=== PATIENT | female | born 1980 | race Caucasian/White ===

== ENCOUNTER 2017-01-05 10:02 | Outpatient (CLI) | payer OTHER ==
--- NOTE | 2017-01-05 12:50 | L&D Discharge Summary ---
OB Discharge Summary Datetime Report Generated by CPN: 01/05/2017 12:50 DISCHARGE DIAGNOSIS Diagnosis/Symptoms: Reassuring Surveillance - Annotate Details Diagnoses/Symptoms Other: IUP at 36.3, reactive NST Number of Babies in Womb: 1 Parity: 4 DIET/ACTIVITY/RESTRICTIONS Diet: Regular Activity: Normal Activity TEACHING/INSTRUCTIONS/REFERRALS Instructions Given To: patient Instructions Understood: Patient Verbalized Understanding Referrals: None Educational Materials- Other: kick counts care notes reviewed with patient, patient verbalized understanding DISCHARGE INFORMATION Discharged AMA: No Discharge Date/Time: 01/05/2017 10:48 Discharged To: Home Discharge Provider Name: Ponce Accompanied By: self Discharge Method: Ambulatory Condition: Stable FOLLOW UP INFORMATION Follow Up With: [facility] Follow Up On: As Scheduled Follow Up Phone Number: [facility] - GENERAL INSTR-CALL PROVIDER IF: Contractions: Contractions or cramps become more frequent than 8 in one hour or 4 in 20 minutes; Regular painful contractions every 5 minutes or less for one hour. Time your contractions from the beginning of one to the beginning of the next Pressure: Pressure in your vagina or lower abdomen that may feel like the baby is pushing down Period Like Cramps: Period-like cramps or low dull backache that may come and go Cramps/Diarrhea: Abdominal cramps that may be accompanied by diarrhea Gush of Fluid/Blood: Gush of fluid or blood from your vagina (it is normal to have spotting after vaginal exam or intercourse) Vaginal Discharge: Change in the type or amount of vaginal discharge Decreased Movement: Your baby is not moving as much as usual- 4 movements in 1 hour after drinking and resting on side Temperature: Temperature greater than 100.0(F) orally
--- NOTE | 2017-01-05 16:45 | Antepartum Discharge Summary ---
Antepartum DC Datetime Report Generated by CPN: 01/05/2017 16:45 DIET/ACTIVITY/RESTRICTIONS Diet: Regular (01/05/2017 10:51:Taryn Joy RN) Activity: Normal Activity (01/05/2017 10:51:Taryn Joy RN) TEACHING/INSTRUCTIONS/REFERRALS Instructions Given To: patient (01/05/2017 10:51:Taryn Joy RN) Instructions Understood: Patient Verbalized Understanding (01/05/2017 10:51:Taryn Rufino, RN) Referrals: None (01/05/2017 10:51:Taryn Joy RN) Educational Materials- Other: kick counts care notes reviewed with patient, patient verbalized understanding (01/05/2017 10:51:Taryn Joy RN) DISCHARGE INFORMATION Discharged AMA: No (01/05/2017 10:51:Taryn Joy RN) Discharge Date/Time: 01/05/2017 10:48 (01/05/2017 10:51:Taryn Joy RN) Discharged To: Home (01/05/2017 10:51:Taryn Joy RN) Discharge Provider Name: Dr. Ponce (01/05/2017 10:51:Taryn Joy RN) Accompanied By: self (01/05/2017 10:51:Taryn Joy RN) Discharge Method: Ambulatory (01/05/2017 10:51:Taryn Joy RN) Condition: Stable (01/05/2017 10:51:Taryn Joy RN) FOLLOW UP INFORMATION Follow Up With: [facility] (01/05/2017 10:51:Taryn Joy RN) Follow Up On: As Scheduled (01/05/2017 10:51:Taryn Joy RN) Follow Up Phone Number: [facility] - (01/05/2017 10:51:Taryn Joy RN) GENERAL INSTR-CALL PROVIDER IF: Contractions: Contractions or cramps become more frequent than 8 in one hour or 4 in 20 minutes; Regular painful contractions every 5 minutes or less for one hour. Time your contractions from the beginning of one to the beginning of the next (01/05/2017 10:51:Taryn Joy RN) Pressure: Pressure in your vagina or lower abdomen that may feel like the baby is pushing down (01/05/2017 10:51:Taryn Joy RN) Period Like Cramps: Period-like cramps or low dull backache that may come and go (01/05/2017 10:51:Taryn Joy RN) Cramps/Diarrhea: Abdominal cramps that may be accompanied by diarrhea (01/05/2017 10:51:Taryn Joy RN) Gush of Fluid/Blood: Gush of fluid or blood from your vagina (it is normal to have spotting after vaginal exam or intercourse) (01/05/2017 10:51:Taryn Joy RN) Vaginal Discharge: Change in the type or amount of vaginal discharge (01/05/2017 10:51:Taryn Joy RN) Decreased Movement: Your baby is not moving as much as usual- 4 movements in 1 hour after drinking and resting on side (01/05/2017 10:51:Taryn Joy RN) Temperature: Temperature greater than 100.0(F) orally (01/05/2017 10:51:Taryn Joy RN) Hypertension Signs/Symptoms: Severe headache which is not relieved 30 minutes after taking Tylenol(Acetaminophen); Blurry vision or spots before your eyes; Severe heartburn or pain on the upper right side of your abdomen that is not relieved by an antacid; Increased swelling in your face, hands or feet (01/05/2017 10:51:Taryn Joy RN) Urinary Output: Decreased urinary output or dark colored urine (01/05/2017 10:51:Taryn Joy RN)
--- NOTE | 2017-01-05 16:45 | L&D General Admission ---
General Admit Datetime Report Generated by CPN: 01/05/2017 16:45 INFORMATION Patient Age: 36 (11/16/2016 11:57:QS system process) EDC: 01/30/2017 00:00 (01/05/2017 10:34:Taryn Joy RN) : 7 (01/05/2017 10:34:Taryn Joy RN) Para: 4 (01/05/2017 10:34:Taryn Joy RN) Baby, Number in Womb: 1 (01/05/2017 10:34:Taryn Joy RN) CARE Height (in): 60 (01/05/2017 10:27:QS system process) ALLERGIES Medication Allergies: duloxetine HCl/SV/shaking (01/05/2017); butalbital/SV/swelling (01/05/2017); topiramate/SV/Shortness of Br (01/05/2017) (01/05/2017 10:25:QS system process) Medication Allergies: duloxetine HCl/SV/shaking (01/17/2016); butalbital/SV/swelling (01/17/2016); topiramate/SV/Shortness of Br (01/17/2016) (11/16/2016 11:57:QS system process) DEMOGRAPHICS Address: [address] [place] [id number] (11/16/2016 11:57:QS system process) Zipcode: [phone] (11/16/2016 11:57:QS system process) Home (11/16/2016 11:57:QS system process) SSN: [id number] (11/16/2016 11:57:QS system process) Next of Kin Name: CONNOR UMANA (11/16/2016 11:57:QS system process) Next of Kin (11/16/2016 11:57:QS system process) Next of Kin Relationship: SPO (11/16/2016 11:57:QS system process) Date of : 1980 (11/16/2016 11:57:QS system process) Marital Status: (11/16/2016 11:57:QS system process) Sex: Female (11/16/2016 11:57:QS system process) Race: (11/16/2016 11:57:QS system process) Ethnicity: or (11/16/2016 11:57:QS system process) Denominational: Confucianism (11/16/2016 11:57:QS system process)
--- NOTE | 2017-01-05 16:45 | L&D Flow Sheet ---
LD Flowsheet Datetime Report Generated by CPN: 01/05/2017 16:45 Datetime: 01/05/2017 10:45 Communication Communication Comments: monitors removed for patient discharge (Taryn Rufino, RN) Datetime: 01/05/2017 10:43 Communication Communication Comments: Dr. Ponce reviewing strip, order received for patient discharge (Taryn Rufino, RN) Datetime: 01/05/2017 10:36 Vital Signs NBP Sys/Nelly/Mean (mmHg): 112 (QS system process) : 63 (QS system process) : 82 (QS system process) Pulse: 86 (QS system process) Datetime: 01/05/2017 10:21 Vital Signs NBP Sys/Nelly/Mean (mmHg): 110 (QS system process) : 65 (QS system process) : 82 (QS system process) Pulse: 96 (QS system process) Datetime: 01/05/2017 10:20 Temperature (F): 98.0 (Taryn Rufino, RN) Temperature (C): 36.7 (QS system process) Datetime: 01/05/2017 10:19 Patient Care Patient Position/Activity: Left Extreme; Low Fowlers (Taryn Rufino, RN) Datetime: 01/05/2017 10:15 Communication Communication Comments: patient to L_D for NST due to office holiday (Taryn Joy RN)
--- NOTE | 2017-01-05 16:45 | L&D Discharge Summary ---
OB Discharge Summary Datetime Report Generated by CPN: 01/05/2017 16:45 DISCHARGE DIAGNOSIS Diagnosis/Symptoms: Reassuring Surveillance - Annotate Details Diagnoses/Symptoms Other: IUP at 36.3, reactive NST Gestation: 36.3 Number of Babies in Womb: 1 Parity: 4 DIET/ACTIVITY/RESTRICTIONS Diet: Regular Activity: Normal Activity TEACHING/INSTRUCTIONS/REFERRALS Instructions Given To: patient Instructions Understood: Patient Verbalized Understanding Referrals: None Educational Materials- Other: kick counts care notes reviewed with patient, patient verbalized understanding DISCHARGE INFORMATION Discharged AMA: No Discharge Date/Time: 01/05/2017 10:48 Discharged To: Home Discharge Provider Name: Dr. Ponce Accompanied By: self Discharge Method: Ambulatory Condition: Stable FOLLOW UP INFORMATION Follow Up With: [facility] Follow Up On: As Scheduled Follow Up Phone Number: [facility] - GENERAL INSTR-CALL PROVIDER IF: Contractions: Contractions or cramps become more frequent than 8 in one hour or 4 in 20 minutes; Regular painful contractions every 5 minutes or less for one hour. Time your contractions from the beginning of one to the beginning of the next Pressure: Pressure in your vagina or lower abdomen that may feel like the baby is pushing down Period Like Cramps: Period-like cramps or low dull backache that may come and go Cramps/Diarrhea: Abdominal cramps that may be accompanied by diarrhea Gush of Fluid/Blood: Gush of fluid or blood from your vagina (it is normal to have spotting after vaginal exam or intercourse) Vaginal Discharge: Change in the type or amount of vaginal discharge Decreased Movement: Your baby is not moving as much as usual- 4 movements in 1 hour after drinking and resting on side Temperature: Temperature greater than 100.0(F) orally
--- NOTE | 2017-01-05 22:46 | Antepartum Discharge Summary ---
Antepartum DC Datetime Report Generated by CPN: 01/05/2017 22:45 DIET/ACTIVITY/RESTRICTIONS Diet: Regular (01/05/2017 10:51:Taryn Joy RN) Activity: Normal Activity (01/05/2017 10:51:Taryn Joy RN) TEACHING/INSTRUCTIONS/REFERRALS Instructions Given To: patient (01/05/2017 10:51:Taryn Joy RN) Instructions Understood: Patient Verbalized Understanding (01/05/2017 10:51:Taryn Rufino, RN) Referrals: None (01/05/2017 10:51:Taryn Joy RN) Educational Materials- Other: kick counts care notes reviewed with patient, patient verbalized understanding (01/05/2017 10:51:Taryn Joy RN) DISCHARGE INFORMATION Discharged AMA: No (01/05/2017 10:51:Taryn Joy RN) Discharge Date/Time: 01/05/2017 10:48 (01/05/2017 10:51:Taryn Joy RN) Discharged To: Home (01/05/2017 10:51:Taryn Joy RN) Discharge Provider Name: Dr. Ponce (01/05/2017 10:51:Taryn Joy RN) Accompanied By: self (01/05/2017 10:51:Taryn Joy RN) Discharge Method: Ambulatory (01/05/2017 10:51:Taryn Joy RN) Condition: Stable (01/05/2017 10:51:Taryn Joy RN) FOLLOW UP INFORMATION Follow Up With: [facility] (01/05/2017 10:51:Taryn Joy RN) Follow Up On: As Scheduled (01/05/2017 10:51:Taryn Joy RN) Follow Up Phone Number: [facility] - (01/05/2017 10:51:Taryn Joy RN) GENERAL INSTR-CALL PROVIDER IF: Contractions: Contractions or cramps become more frequent than 8 in one hour or 4 in 20 minutes; Regular painful contractions every 5 minutes or less for one hour. Time your contractions from the beginning of one to the beginning of the next (01/05/2017 10:51:Tayrn Joy RN) Pressure: Pressure in your vagina or lower abdomen that may feel like the baby is pushing down (01/05/2017 10:51:Taryn Joy RN) Period Like Cramps: Period-like cramps or low dull backache that may come and go (01/05/2017 10:51:Taryn Joy RN) Cramps/Diarrhea: Abdominal cramps that may be accompanied by diarrhea (01/05/2017 10:51:Taryn Joy RN) Gush of Fluid/Blood: Gush of fluid or blood from your vagina (it is normal to have spotting after vaginal exam or intercourse) (01/05/2017 10:51:Taryn Joy RN) Vaginal Discharge: Change in the type or amount of vaginal discharge (01/05/2017 10:51:Taryn Joy RN) Decreased Movement: Your baby is not moving as much as usual- 4 movements in 1 hour after drinking and resting on side (01/05/2017 10:51:Taryn Joy RN) Temperature: Temperature greater than 100.0(F) orally (01/05/2017 10:51:Taryn Joy RN) Hypertension Signs/Symptoms: Severe headache which is not relieved 30 minutes after taking Tylenol(Acetaminophen); Blurry vision or spots before your eyes; Severe heartburn or pain on the upper right side of your abdomen that is not relieved by an antacid; Increased swelling in your face, hands or feet (01/05/2017 10:51:Taryn Joy RN) Urinary Output: Decreased urinary output or dark colored urine (01/05/2017 10:51:Taryn Joy RN)
--- NOTE | 2017-01-05 22:46 | L&D Flow Sheet ---
LD Flowsheet Datetime Report Generated by CPN: 01/05/2017 22:45 Datetime: 01/05/2017 10:45 Communication Comments: monitors removed for patient discharge (Tarny Rufino, RN) Datetime: 01/05/2017 10:43 Communication Comments: Dr. Ponce reviewing strip, order received for patient discharge (Taryn Joy, RN)
--- NOTE | 2017-01-05 22:46 | L&D Discharge Summary ---
OB Discharge Summary Datetime Report Generated by CPN: 01/05/2017 22:45 DISCHARGE DIAGNOSIS Diagnosis/Symptoms: Reassuring Surveillance - Annotate Details Diagnoses/Symptoms Other: IUP at 36.3, reactive NST Gestation: 36.3 Number of Babies in Womb: 1 Parity: 4 DIET/ACTIVITY/RESTRICTIONS Diet: Regular Activity: Normal Activity TEACHING/INSTRUCTIONS/REFERRALS Instructions Given To: patient Instructions Understood: Patient Verbalized Understanding Referrals: None Educational Materials- Other: kick counts care notes reviewed with patient, patient verbalized understanding DISCHARGE INFORMATION Discharged AMA: No Discharge Date/Time: 01/05/2017 10:48 Discharged To: Home Discharge Provider Name: Dr. Ponce Accompanied By: self Discharge Method: Ambulatory Condition: Stable FOLLOW UP INFORMATION Follow Up With: [facility] Follow Up On: As Scheduled Follow Up Phone Number: [facility] - GENERAL INSTR-CALL PROVIDER IF: Contractions: Contractions or cramps become more frequent than 8 in one hour or 4 in 20 minutes; Regular painful contractions every 5 minutes or less for one hour. Time your contractions from the beginning of one to the beginning of the next Pressure: Pressure in your vagina or lower abdomen that may feel like the baby is pushing down Period Like Cramps: Period-like cramps or low dull backache that may come and go Cramps/Diarrhea: Abdominal cramps that may be accompanied by diarrhea Gush of Fluid/Blood: Gush of fluid or blood from your vagina (it is normal to have spotting after vaginal exam or intercourse) Vaginal Discharge: Change in the type or amount of vaginal discharge Decreased Movement: Your baby is not moving as much as usual- 4 movements in 1 hour after drinking and resting on side Temperature: Temperature greater than 100.0(F) orally
--- NOTE | 2017-01-05 22:46 | L&D General Admission ---
General Admit Datetime Report Generated by CPN: 01/05/2017 22:45 INFORMATION Patient Age: 36 (11/16/2016 11:57:QS system process) EDC: 01/30/2017 00:00 (01/05/2017 10:34:Taryn Joy RN) : 7 (01/05/2017 10:34:Taryn Joy RN) Para: 4 (01/05/2017 10:34:Taryn Joy RN) Baby, Number in Womb: 1 (01/05/2017 10:34:Taryn Joy RN) CARE Height (in): 60 (01/05/2017 10:27:QS system process) ALLERGIES Medication Allergies: duloxetine HCl/SV/shaking (01/05/2017); butalbital/SV/swelling (01/05/2017); topiramate/SV/Shortness of Br (01/05/2017) (01/05/2017 10:25:QS system process) Medication Allergies: duloxetine HCl/SV/shaking (01/17/2016); butalbital/SV/swelling (01/17/2016); topiramate/SV/Shortness of Br (01/17/2016) (11/16/2016 11:57:QS system process) DEMOGRAPHICS Address: [address] [place] [phone] (11/16/2016 11:57:QS system process) Zipcode: [phone] (11/16/2016 11:57:QS system process) Home (11/16/2016 11:57:QS system process) SSN: [id number] (11/16/2016 11:57:QS system process) Next of Kin Name: CONNOR UMANA (11/16/2016 11:57:QS system process) Next of Kin (11/16/2016 11:57:QS system process) Next of Kin Relationship: SPO (11/16/2016 11:57:QS system process) Date of : 1980 (11/16/2016 11:57:QS system process) Marital Status: (11/16/2016 11:57:QS system process) Sex: Female (11/16/2016 11:57:QS system process) Race: (11/16/2016 11:57:QS system process) Ethnicity: or (11/16/2016 11:57:QS system process) Taoism: Anabaptist (11/16/2016 11:57:QS system process)
--- NOTE | 2017-01-06 04:45 | L&D Discharge Summary ---
OB Discharge Summary Datetime Report Generated by CPN: 01/06/2017 04:45 DISCHARGE DIAGNOSIS Diagnosis/Symptoms: Reassuring Surveillance - Annotate Details Diagnoses/Symptoms Other: IUP at 36.3, reactive NST Gestation: 36.3 Number of Babies in Womb: 1 Parity: 4 DIET/ACTIVITY/RESTRICTIONS Diet: Regular Activity: Normal Activity TEACHING/INSTRUCTIONS/REFERRALS Instructions Given To: patient Instructions Understood: Patient Verbalized Understanding Referrals: None Educational Materials- Other: kick counts care notes reviewed with patient, patient verbalized understanding DISCHARGE INFORMATION Discharged AMA: No Discharge Date/Time: 01/05/2017 10:48 Discharged To: Home Discharge Provider Name: Dr. Ponce Accompanied By: self Discharge Method: Ambulatory Condition: Stable FOLLOW UP INFORMATION Follow Up With: [facility] Follow Up On: As Scheduled Follow Up Phone Number: [facility] - GENERAL INSTR-CALL PROVIDER IF: Contractions: Contractions or cramps become more frequent than 8 in one hour or 4 in 20 minutes; Regular painful contractions every 5 minutes or less for one hour. Time your contractions from the beginning of one to the beginning of the next Pressure: Pressure in your vagina or lower abdomen that may feel like the baby is pushing down Period Like Cramps: Period-like cramps or low dull backache that may come and go Cramps/Diarrhea: Abdominal cramps that may be accompanied by diarrhea Gush of Fluid/Blood: Gush of fluid or blood from your vagina (it is normal to have spotting after vaginal exam or intercourse) Vaginal Discharge: Change in the type or amount of vaginal discharge Decreased Movement: Your baby is not moving as much as usual- 4 movements in 1 hour after drinking and resting on side Temperature: Temperature greater than 100.0(F) orally
--- NOTE | 2017-01-06 04:45 | L&D General Admission ---
General Admit Datetime Report Generated by CPN: 01/06/2017 04:45 INFORMATION Patient Age: 36 (11/16/2016 11:57:QS system process) EDC: 01/30/2017 00:00 (01/05/2017 10:34:Taryn Joy RN) : 7 (01/05/2017 10:34:Taryn Joy RN) Para: 4 (01/05/2017 10:34:Taryn Joy RN) Baby, Number in Womb: 1 (01/05/2017 10:34:Taryn Joy RN) CARE Height (in): 60 (01/05/2017 10:27:QS system process) ALLERGIES Medication Allergies: duloxetine HCl/SV/shaking (01/05/2017); butalbital/SV/swelling (01/05/2017); topiramate/SV/Shortness of Br (01/05/2017) (01/05/2017 10:25:QS system process) Medication Allergies: duloxetine HCl/SV/shaking (01/17/2016); butalbital/SV/swelling (01/17/2016); topiramate/SV/Shortness of Br (01/17/2016) (11/16/2016 11:57:QS system process) DEMOGRAPHICS Address: [address] [place] [phone] (11/16/2016 11:57:QS system process) Zipcode: [phone] (11/16/2016 11:57:QS system process) Home (11/16/2016 11:57:QS system process) SSN: [id number] (11/16/2016 11:57:QS system process) Next of Kin Name: CONNOR UMANA (11/16/2016 11:57:QS system process) Next of Kin (11/16/2016 11:57:QS system process) Next of Kin Relationship: SPO (11/16/2016 11:57:QS system process) Date of : 1980 (11/16/2016 11:57:QS system process) Marital Status: (11/16/2016 11:57:QS system process) Sex: Female (11/16/2016 11:57:QS system process) Race: (11/16/2016 11:57:QS system process) Ethnicity: or (11/16/2016 11:57:QS system process) Gnosticist: Taoist (11/16/2016 11:57:QS system process)
--- NOTE | 2017-01-06 04:45 | L&D Admission Assessment ---
LD ADM ASMT Datetime Report Generated by CPN: 01/06/2017 04:45 WEIGHT Weight (lb): 246 (01/05/2017 10:27:QS system process) Weight (kg): 111.8 (01/05/2017 10:27:QS system process)
--- NOTE | 2017-01-06 04:45 | Antepartum Discharge Summary ---
Antepartum DC Datetime Report Generated by CPN: 01/06/2017 04:45 DIET/ACTIVITY/RESTRICTIONS Diet: Regular (01/05/2017 10:51:Taryn Joy RN) Activity: Normal Activity (01/05/2017 10:51:Taryn Joy RN) TEACHING/INSTRUCTIONS/REFERRALS Instructions Given To: patient (01/05/2017 10:51:Taryn Joy RN) Instructions Understood: Patient Verbalized Understanding (01/05/2017 10:51:Taryn Rufino, RN) Referrals: None (01/05/2017 10:51:Taryn Joy RN) Educational Materials- Other: kick counts care notes reviewed with patient, patient verbalized understanding (01/05/2017 10:51:Taryn Joy RN) DISCHARGE INFORMATION Discharged AMA: No (01/05/2017 10:51:Taryn Joy RN) Discharge Date/Time: 01/05/2017 10:48 (01/05/2017 10:51:Taryn Jyo RN) Discharged To: Home (01/05/2017 10:51:Taryn Joy RN) Discharge Provider Name: Dr. Ponce (01/05/2017 10:51:Taryn Joy RN) Accompanied By: self (01/05/2017 10:51:Taryn Joy RN) Discharge Method: Ambulatory (01/05/2017 10:51:Taryn Joy RN) Condition: Stable (01/05/2017 10:51:Taryn Joy RN) FOLLOW UP INFORMATION Follow Up With: [facility] (01/05/2017 10:51:Taryn Joy RN) Follow Up On: As Scheduled (01/05/2017 10:51:Taryn Joy RN) Follow Up Phone Number: [facility] - (01/05/2017 10:51:Taryn Joy RN) GENERAL INSTR-CALL PROVIDER IF: Contractions: Contractions or cramps become more frequent than 8 in one hour or 4 in 20 minutes; Regular painful contractions every 5 minutes or less for one hour. Time your contractions from the beginning of one to the beginning of the next (01/05/2017 10:51:Taryn Joy RN) Pressure: Pressure in your vagina or lower abdomen that may feel like the baby is pushing down (01/05/2017 10:51:Taryn Joy RN) Period Like Cramps: Period-like cramps or low dull backache that may come and go (01/05/2017 10:51:Taryn Joy RN) Cramps/Diarrhea: Abdominal cramps that may be accompanied by diarrhea (01/05/2017 10:51:Taryn Joy RN) Gush of Fluid/Blood: Gush of fluid or blood from your vagina (it is normal to have spotting after vaginal exam or intercourse) (01/05/2017 10:51:Taryn Joy RN) Vaginal Discharge: Change in the type or amount of vaginal discharge (01/05/2017 10:51:Taryn Joy RN) Decreased Movement: Your baby is not moving as much as usual- 4 movements in 1 hour after drinking and resting on side (01/05/2017 10:51:Taryn Joy RN) Temperature: Temperature greater than 100.0(F) orally (01/05/2017 10:51:Taryn Joy RN) Hypertension Signs/Symptoms: Severe headache which is not relieved 30 minutes after taking Tylenol(Acetaminophen); Blurry vision or spots before your eyes; Severe heartburn or pain on the upper right side of your abdomen that is not relieved by an antacid; Increased swelling in your face, hands or feet (01/05/2017 10:51:Taryn Joy RN) Urinary Output: Decreased urinary output or dark colored urine (01/05/2017 10:51:Taryn Joy RN)
--- NOTE | 2017-01-06 10:45 | L&D Discharge Summary ---
OB Discharge Summary Datetime Report Generated by CPN: 01/06/2017 10:45 DISCHARGE DIAGNOSIS Diagnosis/Symptoms: Reassuring Surveillance - Annotate Details Diagnoses/Symptoms Other: IUP at 36.3, reactive NST Gestation: 36.3 Number of Babies in Womb: 1 Parity: 4 DIET/ACTIVITY/RESTRICTIONS Diet: Regular Activity: Normal Activity TEACHING/INSTRUCTIONS/REFERRALS Instructions Given To: patient Instructions Understood: Patient Verbalized Understanding Referrals: None Educational Materials- Other: kick counts care notes reviewed with patient, patient verbalized understanding DISCHARGE INFORMATION Discharged AMA: No Discharge Date/Time: 01/05/2017 10:48 Discharged To: Home Discharge Provider Name: Dr. Ponce Accompanied By: self Discharge Method: Ambulatory Condition: Stable FOLLOW UP INFORMATION Follow Up With: [facility] Follow Up On: As Scheduled Follow Up Phone Number: [facility] - GENERAL INSTR-CALL PROVIDER IF: Contractions: Contractions or cramps become more frequent than 8 in one hour or 4 in 20 minutes; Regular painful contractions every 5 minutes or less for one hour. Time your contractions from the beginning of one to the beginning of the next Pressure: Pressure in your vagina or lower abdomen that may feel like the baby is pushing down Period Like Cramps: Period-like cramps or low dull backache that may come and go Cramps/Diarrhea: Abdominal cramps that may be accompanied by diarrhea Gush of Fluid/Blood: Gush of fluid or blood from your vagina (it is normal to have spotting after vaginal exam or intercourse) Vaginal Discharge: Change in the type or amount of vaginal discharge Decreased Movement: Your baby is not moving as much as usual- 4 movements in 1 hour after drinking and resting on side Temperature: Temperature greater than 100.0(F) orally
--- NOTE | 2017-01-06 10:45 | L&D Admission Assessment ---
LD ADM ASMT Datetime Report Generated by CPN: 01/06/2017 10:45 WEIGHT Weight (lb): 246 (01/05/2017 10:27:QS system process) Weight (kg): 111.8 (01/05/2017 10:27:QS system process)
--- NOTE | 2017-01-06 10:45 | L&D General Admission ---
General Admit Datetime Report Generated by CPN: 01/06/2017 10:45 INFORMATION Patient Age: 36 (11/16/2016 11:57:QS system process) EDC: 01/30/2017 00:00 (01/05/2017 10:34:Taryn Joy RN) : 7 (01/05/2017 10:34:Taryn Joy RN) Para: 4 (01/05/2017 10:34:Taryn Joy RN) Baby, Number in Womb: 1 (01/05/2017 10:34:Taryn Joy RN) CARE Height (in): 60 (01/05/2017 10:27:QS system process) ALLERGIES Medication Allergies: duloxetine HCl/SV/shaking (01/05/2017); butalbital/SV/swelling (01/05/2017); topiramate/SV/Shortness of Br (01/05/2017) (01/05/2017 10:25:QS system process) Medication Allergies: duloxetine HCl/SV/shaking (01/17/2016); butalbital/SV/swelling (01/17/2016); topiramate/SV/Shortness of Br (01/17/2016) (11/16/2016 11:57:QS system process) DEMOGRAPHICS Address: [address] [place] [id number] (11/16/2016 11:57:QS system process) Zipcode: [phone] (11/16/2016 11:57:QS system process) Home (11/16/2016 11:57:QS system process) SSN: [id number] (11/16/2016 11:57:QS system process) Next of Kin Name: CONNOR UMANA (11/16/2016 11:57:QS system process) Next of Kin (11/16/2016 11:57:QS system process) Next of Kin Relationship: SPO (11/16/2016 11:57:QS system process) Date of : 1980 (11/16/2016 11:57:QS system process) Marital Status: (11/16/2016 11:57:QS system process) Sex: Female (11/16/2016 11:57:QS system process) Race: (11/16/2016 11:57:QS system process) Ethnicity: or (11/16/2016 11:57:QS system process) Methodist: Anabaptist (11/16/2016 11:57:QS system process)
--- NOTE | 2017-01-06 10:45 | Antepartum Discharge Summary ---
Antepartum DC Datetime Report Generated by CPN: 01/06/2017 10:45 DIET/ACTIVITY/RESTRICTIONS Diet: Regular (01/05/2017 10:51:Taryn Joy RN) Activity: Normal Activity (01/05/2017 10:51:Taryn Joy RN) TEACHING/INSTRUCTIONS/REFERRALS Instructions Given To: patient (01/05/2017 10:51:Taryn Joy RN) Instructions Understood: Patient Verbalized Understanding (01/05/2017 10:51:Taryn Rufino, RN) Referrals: None (01/05/2017 10:51:Taryn Joy RN) Educational Materials- Other: kick counts care notes reviewed with patient, patient verbalized understanding (01/05/2017 10:51:Taryn Joy RN) DISCHARGE INFORMATION Discharged AMA: No (01/05/2017 10:51:Taryn Joy RN) Discharge Date/Time: 01/05/2017 10:48 (01/05/2017 10:51:Taryn Joy RN) Discharged To: Home (01/05/2017 10:51:Taryn Joy RN) Discharge Provider Name: Dr. Ponce (01/05/2017 10:51:Taryn Joy RN) Accompanied By: self (01/05/2017 10:51:Taryn Joy RN) Discharge Method: Ambulatory (01/05/2017 10:51:Taryn Joy RN) Condition: Stable (01/05/2017 10:51:Taryn Joy RN) FOLLOW UP INFORMATION Follow Up With: [facility] (01/05/2017 10:51:Taryn Joy RN) Follow Up On: As Scheduled (01/05/2017 10:51:Taryn Joy RN) Follow Up Phone Number: [facility] - (01/05/2017 10:51:Taryn Joy RN) GENERAL INSTR-CALL PROVIDER IF: Contractions: Contractions or cramps become more frequent than 8 in one hour or 4 in 20 minutes; Regular painful contractions every 5 minutes or less for one hour. Time your contractions from the beginning of one to the beginning of the next (01/05/2017 10:51:Taryn Joy RN) Pressure: Pressure in your vagina or lower abdomen that may feel like the baby is pushing down (01/05/2017 10:51:Taryn Joy RN) Period Like Cramps: Period-like cramps or low dull backache that may come and go (01/05/2017 10:51:Taryn Joy RN) Cramps/Diarrhea: Abdominal cramps that may be accompanied by diarrhea (01/05/2017 10:51:Taryn Joy RN) Gush of Fluid/Blood: Gush of fluid or blood from your vagina (it is normal to have spotting after vaginal exam or intercourse) (01/05/2017 10:51:Taryn Joy RN) Vaginal Discharge: Change in the type or amount of vaginal discharge (01/05/2017 10:51:Taryn Joy RN) Decreased Movement: Your baby is not moving as much as usual- 4 movements in 1 hour after drinking and resting on side (01/05/2017 10:51:Taryn Joy RN) Temperature: Temperature greater than 100.0(F) orally (01/05/2017 10:51:Taryn Joy RN) Hypertension Signs/Symptoms: Severe headache which is not relieved 30 minutes after taking Tylenol(Acetaminophen); Blurry vision or spots before your eyes; Severe heartburn or pain on the upper right side of your abdomen that is not relieved by an antacid; Increased swelling in your face, hands or feet (01/05/2017 10:51:Taryn Joy RN) Urinary Output: Decreased urinary output or dark colored urine (01/05/2017 10:51:Taryn Joy RN)
--- NOTE | 2017-01-06 16:45 | L&D Discharge Summary ---
OB Discharge Summary Datetime Report Generated by CPN: 01/06/2017 16:45 DISCHARGE DIAGNOSIS Diagnosis/Symptoms: Reassuring Surveillance - Annotate Details Diagnoses/Symptoms Other: IUP at 36.3, reactive NST Gestation: 36.3 Number of Babies in Womb: 1 Parity: 4 DIET/ACTIVITY/RESTRICTIONS Diet: Regular Activity: Normal Activity TEACHING/INSTRUCTIONS/REFERRALS Instructions Given To: patient Instructions Understood: Patient Verbalized Understanding Referrals: None Educational Materials- Other: kick counts care notes reviewed with patient, patient verbalized understanding DISCHARGE INFORMATION Discharged AMA: No Discharge Date/Time: 01/05/2017 10:48 Discharged To: Home Discharge Provider Name: Dr. Ponce Accompanied By: self Discharge Method: Ambulatory Condition: Stable FOLLOW UP INFORMATION Follow Up With: [facility] Follow Up On: As Scheduled Follow Up Phone Number: [facility] - GENERAL INSTR-CALL PROVIDER IF: Contractions: Contractions or cramps become more frequent than 8 in one hour or 4 in 20 minutes; Regular painful contractions every 5 minutes or less for one hour. Time your contractions from the beginning of one to the beginning of the next Pressure: Pressure in your vagina or lower abdomen that may feel like the baby is pushing down Period Like Cramps: Period-like cramps or low dull backache that may come and go Cramps/Diarrhea: Abdominal cramps that may be accompanied by diarrhea Gush of Fluid/Blood: Gush of fluid or blood from your vagina (it is normal to have spotting after vaginal exam or intercourse) Vaginal Discharge: Change in the type or amount of vaginal discharge Decreased Movement: Your baby is not moving as much as usual- 4 movements in 1 hour after drinking and resting on side Temperature: Temperature greater than 100.0(F) orally
--- NOTE | 2017-01-06 22:45 | L&D Discharge Summary ---
OB Discharge Summary Datetime Report Generated by CPN: 01/06/2017 22:45 DISCHARGE DIAGNOSIS Diagnosis/Symptoms: Reassuring Surveillance - Annotate Details Diagnoses/Symptoms Other: IUP at 36.3, reactive NST Gestation: 36.3 Number of Babies in Womb: 1 Parity: 4 DIET/ACTIVITY/RESTRICTIONS Diet: Regular Activity: Normal Activity TEACHING/INSTRUCTIONS/REFERRALS Instructions Given To: patient Instructions Understood: Patient Verbalized Understanding Referrals: None Educational Materials- Other: kick counts care notes reviewed with patient, patient verbalized understanding DISCHARGE INFORMATION Discharged AMA: No Discharge Date/Time: 01/05/2017 10:48 Discharged To: Home Discharge Provider Name: Dr. Ponce Accompanied By: self Discharge Method: Ambulatory Condition: Stable FOLLOW UP INFORMATION Follow Up With: [facility] Follow Up On: As Scheduled Follow Up Phone Number: [facility] - GENERAL INSTR-CALL PROVIDER IF: Contractions: Contractions or cramps become more frequent than 8 in one hour or 4 in 20 minutes; Regular painful contractions every 5 minutes or less for one hour. Time your contractions from the beginning of one to the beginning of the next Pressure: Pressure in your vagina or lower abdomen that may feel like the baby is pushing down Period Like Cramps: Period-like cramps or low dull backache that may come and go Cramps/Diarrhea: Abdominal cramps that may be accompanied by diarrhea Gush of Fluid/Blood: Gush of fluid or blood from your vagina (it is normal to have spotting after vaginal exam or intercourse) Vaginal Discharge: Change in the type or amount of vaginal discharge Decreased Movement: Your baby is not moving as much as usual- 4 movements in 1 hour after drinking and resting on side Temperature: Temperature greater than 100.0(F) orally
--- NOTE | 2017-01-07 04:46 | L&D Discharge Summary ---
OB Discharge Summary Datetime Report Generated by CPN: 01/07/2017 04:45 DISCHARGE DIAGNOSIS Diagnosis/Symptoms: Reassuring Surveillance - Annotate Details Diagnoses/Symptoms Other: IUP at 36.3, reactive NST Gestation: 36.3 Number of Babies in Womb: 1 Parity: 4 DIET/ACTIVITY/RESTRICTIONS Diet: Regular Activity: Normal Activity TEACHING/INSTRUCTIONS/REFERRALS Instructions Given To: patient Instructions Understood: Patient Verbalized Understanding Referrals: None Educational Materials- Other: kick counts care notes reviewed with patient, patient verbalized understanding DISCHARGE INFORMATION Discharged AMA: No Discharge Date/Time: 01/05/2017 10:48 Discharged To: Home Discharge Provider Name: Dr. Ponce Accompanied By: self Discharge Method: Ambulatory Condition: Stable FOLLOW UP INFORMATION Follow Up With: [facility] Follow Up On: As Scheduled Follow Up Phone Number: [facility] - GENERAL INSTR-CALL PROVIDER IF: Contractions: Contractions or cramps become more frequent than 8 in one hour or 4 in 20 minutes; Regular painful contractions every 5 minutes or less for one hour. Time your contractions from the beginning of one to the beginning of the next Pressure: Pressure in your vagina or lower abdomen that may feel like the baby is pushing down Period Like Cramps: Period-like cramps or low dull backache that may come and go Cramps/Diarrhea: Abdominal cramps that may be accompanied by diarrhea Gush of Fluid/Blood: Gush of fluid or blood from your vagina (it is normal to have spotting after vaginal exam or intercourse) Vaginal Discharge: Change in the type or amount of vaginal discharge Decreased Movement: Your baby is not moving as much as usual- 4 movements in 1 hour after drinking and resting on side Temperature: Temperature greater than 100.0(F) orally
--- NOTE | 2017-01-07 10:45 | L&D Discharge Summary ---
OB Discharge Summary Datetime Report Generated by CPN: 01/07/2017 10:45 DISCHARGE DIAGNOSIS Diagnosis/Symptoms: Reassuring Surveillance - Annotate Details Diagnoses/Symptoms Other: IUP at 36.3, reactive NST Gestation: 36.3 Number of Babies in Womb: 1 Parity: 4 DIET/ACTIVITY/RESTRICTIONS Diet: Regular Activity: Normal Activity TEACHING/INSTRUCTIONS/REFERRALS Instructions Given To: patient Instructions Understood: Patient Verbalized Understanding Referrals: None Educational Materials- Other: kick counts care notes reviewed with patient, patient verbalized understanding DISCHARGE INFORMATION Discharged AMA: No Discharge Date/Time: 01/05/2017 10:48 Discharged To: Home Discharge Provider Name: Dr. Ponce Accompanied By: self Discharge Method: Ambulatory Condition: Stable FOLLOW UP INFORMATION Follow Up With: [facility] Follow Up On: As Scheduled Follow Up Phone Number: [facility] - GENERAL INSTR-CALL PROVIDER IF: Contractions: Contractions or cramps become more frequent than 8 in one hour or 4 in 20 minutes; Regular painful contractions every 5 minutes or less for one hour. Time your contractions from the beginning of one to the beginning of the next Pressure: Pressure in your vagina or lower abdomen that may feel like the baby is pushing down Period Like Cramps: Period-like cramps or low dull backache that may come and go Cramps/Diarrhea: Abdominal cramps that may be accompanied by diarrhea Gush of Fluid/Blood: Gush of fluid or blood from your vagina (it is normal to have spotting after vaginal exam or intercourse) Vaginal Discharge: Change in the type or amount of vaginal discharge Decreased Movement: Your baby is not moving as much as usual- 4 movements in 1 hour after drinking and resting on side Temperature: Temperature greater than 100.0(F) orally
--- NOTE | 2017-01-07 16:45 | L&D Discharge Summary ---
OB Discharge Summary Datetime Report Generated by CPN: 01/07/2017 16:45 DISCHARGE DIAGNOSIS Diagnosis/Symptoms: Reassuring Surveillance - Annotate Details Diagnoses/Symptoms Other: IUP at 36.3, reactive NST Gestation: 36.3 Number of Babies in Womb: 1 Parity: 4 DIET/ACTIVITY/RESTRICTIONS Diet: Regular Activity: Normal Activity TEACHING/INSTRUCTIONS/REFERRALS Instructions Given To: patient Instructions Understood: Patient Verbalized Understanding Referrals: None Educational Materials- Other: kick counts care notes reviewed with patient, patient verbalized understanding DISCHARGE INFORMATION Discharged AMA: No Discharge Date/Time: 01/05/2017 10:48 Discharged To: Home Discharge Provider Name: Dr. Ponce Accompanied By: self Discharge Method: Ambulatory Condition: Stable FOLLOW UP INFORMATION Follow Up With: [facility] Follow Up On: As Scheduled Follow Up Phone Number: [facility] - GENERAL INSTR-CALL PROVIDER IF: Contractions: Contractions or cramps become more frequent than 8 in one hour or 4 in 20 minutes; Regular painful contractions every 5 minutes or less for one hour. Time your contractions from the beginning of one to the beginning of the next Pressure: Pressure in your vagina or lower abdomen that may feel like the baby is pushing down Period Like Cramps: Period-like cramps or low dull backache that may come and go Cramps/Diarrhea: Abdominal cramps that may be accompanied by diarrhea Gush of Fluid/Blood: Gush of fluid or blood from your vagina (it is normal to have spotting after vaginal exam or intercourse) Vaginal Discharge: Change in the type or amount of vaginal discharge Decreased Movement: Your baby is not moving as much as usual- 4 movements in 1 hour after drinking and resting on side Temperature: Temperature greater than 100.0(F) orally
--- NOTE | 2017-01-07 22:45 | L&D Discharge Summary ---
OB Discharge Summary Datetime Report Generated by CPN: 01/07/2017 22:45 DISCHARGE DIAGNOSIS Diagnosis/Symptoms: Reassuring Surveillance - Annotate Details Diagnoses/Symptoms Other: IUP at 36.3, reactive NST Gestation: 36.3 Number of Babies in Womb: 1 Parity: 4 DIET/ACTIVITY/RESTRICTIONS Diet: Regular Activity: Normal Activity TEACHING/INSTRUCTIONS/REFERRALS Instructions Given To: patient Instructions Understood: Patient Verbalized Understanding Referrals: None Educational Materials- Other: kick counts care notes reviewed with patient, patient verbalized understanding DISCHARGE INFORMATION Discharged AMA: No Discharge Date/Time: 01/05/2017 10:48 Discharged To: Home Discharge Provider Name: Dr. Ponce Accompanied By: self Discharge Method: Ambulatory Condition: Stable FOLLOW UP INFORMATION Follow Up With: [facility] Follow Up On: As Scheduled Follow Up Phone Number: [facility] - GENERAL INSTR-CALL PROVIDER IF: Contractions: Contractions or cramps become more frequent than 8 in one hour or 4 in 20 minutes; Regular painful contractions every 5 minutes or less for one hour. Time your contractions from the beginning of one to the beginning of the next Pressure: Pressure in your vagina or lower abdomen that may feel like the baby is pushing down Period Like Cramps: Period-like cramps or low dull backache that may come and go Cramps/Diarrhea: Abdominal cramps that may be accompanied by diarrhea Gush of Fluid/Blood: Gush of fluid or blood from your vagina (it is normal to have spotting after vaginal exam or intercourse) Vaginal Discharge: Change in the type or amount of vaginal discharge Decreased Movement: Your baby is not moving as much as usual- 4 movements in 1 hour after drinking and resting on side Temperature: Temperature greater than 100.0(F) orally
--- NOTE | 2017-01-08 04:45 | L&D Discharge Summary ---
OB Discharge Summary Datetime Report Generated by CPN: 01/08/2017 04:45 DISCHARGE DIAGNOSIS Diagnosis/Symptoms: Reassuring Surveillance - Annotate Details Diagnoses/Symptoms Other: IUP at 36.3, reactive NST Gestation: 36.3 Number of Babies in Womb: 1 Parity: 4 DIET/ACTIVITY/RESTRICTIONS Diet: Regular Activity: Normal Activity TEACHING/INSTRUCTIONS/REFERRALS Instructions Given To: patient Instructions Understood: Patient Verbalized Understanding Referrals: None Educational Materials- Other: kick counts care notes reviewed with patient, patient verbalized understanding DISCHARGE INFORMATION Discharged AMA: No Discharge Date/Time: 01/05/2017 10:48 Discharged To: Home Discharge Provider Name: Dr. Ponce Accompanied By: self Discharge Method: Ambulatory Condition: Stable FOLLOW UP INFORMATION Follow Up With: [facility] Follow Up On: As Scheduled Follow Up Phone Number: [facility] - GENERAL INSTR-CALL PROVIDER IF: Contractions: Contractions or cramps become more frequent than 8 in one hour or 4 in 20 minutes; Regular painful contractions every 5 minutes or less for one hour. Time your contractions from the beginning of one to the beginning of the next Pressure: Pressure in your vagina or lower abdomen that may feel like the baby is pushing down Period Like Cramps: Period-like cramps or low dull backache that may come and go Cramps/Diarrhea: Abdominal cramps that may be accompanied by diarrhea Gush of Fluid/Blood: Gush of fluid or blood from your vagina (it is normal to have spotting after vaginal exam or intercourse) Vaginal Discharge: Change in the type or amount of vaginal discharge Decreased Movement: Your baby is not moving as much as usual- 4 movements in 1 hour after drinking and resting on side Temperature: Temperature greater than 100.0(F) orally
--- NOTE | 2017-01-08 10:46 | L&D Discharge Summary ---
OB Discharge Summary Datetime Report Generated by CPN: 01/08/2017 10:45 DISCHARGE DIAGNOSIS Diagnosis/Symptoms: Reassuring Surveillance - Annotate Details Diagnoses/Symptoms Other: IUP at 36.3, reactive NST Gestation: 36.3 Number of Babies in Womb: 1 Parity: 4 DIET/ACTIVITY/RESTRICTIONS Diet: Regular Activity: Normal Activity TEACHING/INSTRUCTIONS/REFERRALS Instructions Given To: patient Instructions Understood: Patient Verbalized Understanding Referrals: None Educational Materials- Other: kick counts care notes reviewed with patient, patient verbalized understanding DISCHARGE INFORMATION Discharged AMA: No Discharge Date/Time: 01/05/2017 10:48 Discharged To: Home Discharge Provider Name: Dr. Ponce Accompanied By: self Discharge Method: Ambulatory Condition: Stable FOLLOW UP INFORMATION Follow Up With: [facility] Follow Up On: As Scheduled Follow Up Phone Number: [facility] - GENERAL INSTR-CALL PROVIDER IF: Contractions: Contractions or cramps become more frequent than 8 in one hour or 4 in 20 minutes; Regular painful contractions every 5 minutes or less for one hour. Time your contractions from the beginning of one to the beginning of the next Pressure: Pressure in your vagina or lower abdomen that may feel like the baby is pushing down Period Like Cramps: Period-like cramps or low dull backache that may come and go Cramps/Diarrhea: Abdominal cramps that may be accompanied by diarrhea Gush of Fluid/Blood: Gush of fluid or blood from your vagina (it is normal to have spotting after vaginal exam or intercourse) Vaginal Discharge: Change in the type or amount of vaginal discharge Decreased Movement: Your baby is not moving as much as usual- 4 movements in 1 hour after drinking and resting on side Temperature: Temperature greater than 100.0(F) orally
--- NOTE | 2017-01-08 16:46 | L&D Discharge Summary ---
OB Discharge Summary Datetime Report Generated by CPN: 01/08/2017 16:45 DISCHARGE DIAGNOSIS Diagnosis/Symptoms: Reassuring Surveillance - Annotate Details Diagnoses/Symptoms Other: IUP at 36.3, reactive NST Gestation: 36.3 Number of Babies in Womb: 1 Parity: 4 DIET/ACTIVITY/RESTRICTIONS Diet: Regular Activity: Normal Activity TEACHING/INSTRUCTIONS/REFERRALS Instructions Given To: patient Instructions Understood: Patient Verbalized Understanding Referrals: None Educational Materials- Other: kick counts care notes reviewed with patient, patient verbalized understanding DISCHARGE INFORMATION Discharged AMA: No Discharge Date/Time: 01/05/2017 10:48 Discharged To: Home Discharge Provider Name: Dr. Ponce Accompanied By: self Discharge Method: Ambulatory Condition: Stable FOLLOW UP INFORMATION Follow Up With: [facility] Follow Up On: As Scheduled Follow Up Phone Number: [facility] - GENERAL INSTR-CALL PROVIDER IF: Contractions: Contractions or cramps become more frequent than 8 in one hour or 4 in 20 minutes; Regular painful contractions every 5 minutes or less for one hour. Time your contractions from the beginning of one to the beginning of the next Pressure: Pressure in your vagina or lower abdomen that may feel like the baby is pushing down Period Like Cramps: Period-like cramps or low dull backache that may come and go Cramps/Diarrhea: Abdominal cramps that may be accompanied by diarrhea Gush of Fluid/Blood: Gush of fluid or blood from your vagina (it is normal to have spotting after vaginal exam or intercourse) Vaginal Discharge: Change in the type or amount of vaginal discharge Decreased Movement: Your baby is not moving as much as usual- 4 movements in 1 hour after drinking and resting on side Temperature: Temperature greater than 100.0(F) orally
--- NOTE | 2017-01-08 22:46 | L&D Discharge Summary ---
OB Discharge Summary Datetime Report Generated by CPN: 01/08/2017 22:45 DISCHARGE DIAGNOSIS Diagnosis/Symptoms: Reassuring Surveillance - Annotate Details Diagnoses/Symptoms Other: IUP at 36.3, reactive NST Gestation: 36.3 Number of Babies in Womb: 1 Parity: 4 DIET/ACTIVITY/RESTRICTIONS Diet: Regular Activity: Normal Activity TEACHING/INSTRUCTIONS/REFERRALS Instructions Given To: patient Instructions Understood: Patient Verbalized Understanding Referrals: None Educational Materials- Other: kick counts care notes reviewed with patient, patient verbalized understanding DISCHARGE INFORMATION Discharged AMA: No Discharge Date/Time: 01/05/2017 10:48 Discharged To: Home Discharge Provider Name: Dr. Ponce Accompanied By: self Discharge Method: Ambulatory Condition: Stable FOLLOW UP INFORMATION Follow Up With: [facility] Follow Up On: As Scheduled Follow Up Phone Number: [facility] - GENERAL INSTR-CALL PROVIDER IF: Contractions: Contractions or cramps become more frequent than 8 in one hour or 4 in 20 minutes; Regular painful contractions every 5 minutes or less for one hour. Time your contractions from the beginning of one to the beginning of the next Pressure: Pressure in your vagina or lower abdomen that may feel like the baby is pushing down Period Like Cramps: Period-like cramps or low dull backache that may come and go Cramps/Diarrhea: Abdominal cramps that may be accompanied by diarrhea Gush of Fluid/Blood: Gush of fluid or blood from your vagina (it is normal to have spotting after vaginal exam or intercourse) Vaginal Discharge: Change in the type or amount of vaginal discharge Decreased Movement: Your baby is not moving as much as usual- 4 movements in 1 hour after drinking and resting on side Temperature: Temperature greater than 100.0(F) orally
--- NOTE | 2017-01-09 04:46 | L&D Discharge Summary ---
OB Discharge Summary Datetime Report Generated by CPN: 01/09/2017 04:45 DISCHARGE DIAGNOSIS Diagnosis/Symptoms: Reassuring Surveillance - Annotate Details Diagnoses/Symptoms Other: IUP at 36.3, reactive NST Gestation: 36.3 Number of Babies in Womb: 1 Parity: 4 DIET/ACTIVITY/RESTRICTIONS Diet: Regular Activity: Normal Activity TEACHING/INSTRUCTIONS/REFERRALS Instructions Given To: patient Instructions Understood: Patient Verbalized Understanding Referrals: None Educational Materials- Other: kick counts care notes reviewed with patient, patient verbalized understanding DISCHARGE INFORMATION Discharged AMA: No Discharge Date/Time: 01/05/2017 10:48 Discharged To: Home Discharge Provider Name: Dr. Ponce Accompanied By: self Discharge Method: Ambulatory Condition: Stable FOLLOW UP INFORMATION Follow Up With: [facility] Follow Up On: As Scheduled Follow Up Phone Number: [facility] - GENERAL INSTR-CALL PROVIDER IF: Contractions: Contractions or cramps become more frequent than 8 in one hour or 4 in 20 minutes; Regular painful contractions every 5 minutes or less for one hour. Time your contractions from the beginning of one to the beginning of the next Pressure: Pressure in your vagina or lower abdomen that may feel like the baby is pushing down Period Like Cramps: Period-like cramps or low dull backache that may come and go Cramps/Diarrhea: Abdominal cramps that may be accompanied by diarrhea Gush of Fluid/Blood: Gush of fluid or blood from your vagina (it is normal to have spotting after vaginal exam or intercourse) Vaginal Discharge: Change in the type or amount of vaginal discharge Decreased Movement: Your baby is not moving as much as usual- 4 movements in 1 hour after drinking and resting on side Temperature: Temperature greater than 100.0(F) orally
--- NOTE | 2017-01-09 10:46 | L&D Discharge Summary ---
OB Discharge Summary Datetime Report Generated by CPN: 01/09/2017 10:45 DISCHARGE DIAGNOSIS Diagnosis/Symptoms: Reassuring Surveillance - Annotate Details Diagnoses/Symptoms Other: IUP at 36.3, reactive NST Gestation: 36.3 Number of Babies in Womb: 1 Parity: 4 DIET/ACTIVITY/RESTRICTIONS Diet: Regular Activity: Normal Activity TEACHING/INSTRUCTIONS/REFERRALS Instructions Given To: patient Instructions Understood: Patient Verbalized Understanding Referrals: None Educational Materials- Other: kick counts care notes reviewed with patient, patient verbalized understanding DISCHARGE INFORMATION Discharged AMA: No Discharge Date/Time: 01/05/2017 10:48 Discharged To: Home Discharge Provider Name: Dr. Ponce Accompanied By: self Discharge Method: Ambulatory Condition: Stable FOLLOW UP INFORMATION Follow Up With: [facility] Follow Up On: As Scheduled Follow Up Phone Number: [facility] - GENERAL INSTR-CALL PROVIDER IF: Contractions: Contractions or cramps become more frequent than 8 in one hour or 4 in 20 minutes; Regular painful contractions every 5 minutes or less for one hour. Time your contractions from the beginning of one to the beginning of the next Pressure: Pressure in your vagina or lower abdomen that may feel like the baby is pushing down Period Like Cramps: Period-like cramps or low dull backache that may come and go Cramps/Diarrhea: Abdominal cramps that may be accompanied by diarrhea Gush of Fluid/Blood: Gush of fluid or blood from your vagina (it is normal to have spotting after vaginal exam or intercourse) Vaginal Discharge: Change in the type or amount of vaginal discharge Decreased Movement: Your baby is not moving as much as usual- 4 movements in 1 hour after drinking and resting on side Temperature: Temperature greater than 100.0(F) orally
--- NOTE | 2017-01-09 16:46 | L&D Discharge Summary ---
OB Discharge Summary Datetime Report Generated by CPN: 01/09/2017 16:45 DISCHARGE DIAGNOSIS Diagnosis/Symptoms: Reassuring Surveillance - Annotate Details Diagnoses/Symptoms Other: IUP at 36.3, reactive NST Gestation: 37.0 Number of Babies in Womb: 1 Parity: 4 DIET/ACTIVITY/RESTRICTIONS Diet: Regular Activity: Normal Activity TEACHING/INSTRUCTIONS/REFERRALS Instructions Given To: patient Instructions Understood: Patient Verbalized Understanding Referrals: None Educational Materials- Other: kick counts care notes reviewed with patient, patient verbalized understanding DISCHARGE INFORMATION Discharged AMA: No Discharge Date/Time: 01/05/2017 10:48 Discharged To: Home Discharge Provider Name: Dr. Ponce Accompanied By: self Discharge Method: Ambulatory Condition: Stable FOLLOW UP INFORMATION Follow Up With: [facility] Follow Up On: As Scheduled Follow Up Phone Number: [facility] - GENERAL INSTR-CALL PROVIDER IF: Contractions: Contractions or cramps become more frequent than 8 in one hour or 4 in 20 minutes; Regular painful contractions every 5 minutes or less for one hour. Time your contractions from the beginning of one to the beginning of the next Pressure: Pressure in your vagina or lower abdomen that may feel like the baby is pushing down Period Like Cramps: Period-like cramps or low dull backache that may come and go Cramps/Diarrhea: Abdominal cramps that may be accompanied by diarrhea Gush of Fluid/Blood: Gush of fluid or blood from your vagina (it is normal to have spotting after vaginal exam or intercourse) Vaginal Discharge: Change in the type or amount of vaginal discharge Decreased Movement: Your baby is not moving as much as usual- 4 movements in 1 hour after drinking and resting on side Temperature: Temperature greater than 100.0(F) orally
--- NOTE | 2017-01-09 16:46 | L&D General Admission ---
General Admit Datetime Report Generated by CPN: 01/09/2017 16:45 Hemoglobin: 9.8 L (01/09/2017 10:50:QS system process) Hematocrit: 29.5 L (01/09/2017 10:50:QS system process) MCV: 77 L (01/09/2017 10:50:QS system process)
--- NOTE | 2017-01-09 22:46 | L&D General Admission ---
General Admit Datetime Report Generated by CPN: 01/09/2017 22:45 Hemoglobin: 9.8 L (01/09/2017 10:50:QS system process) Hematocrit: 29.5 L (01/09/2017 10:50:QS system process) MCV: 77 L (01/09/2017 10:50:QS system process)
--- NOTE | 2017-01-09 22:46 | L&D Discharge Summary ---
OB Discharge Summary Datetime Report Generated by CPN: 01/09/2017 22:45 DISCHARGE DIAGNOSIS Diagnosis/Symptoms: Reassuring Surveillance - Annotate Details Diagnoses/Symptoms Other: IUP at 36.3, reactive NST Gestation: 37.0 Number of Babies in Womb: 1 Parity: 4 DIET/ACTIVITY/RESTRICTIONS Diet: Regular Activity: Normal Activity TEACHING/INSTRUCTIONS/REFERRALS Instructions Given To: patient Instructions Understood: Patient Verbalized Understanding Referrals: None Educational Materials- Other: kick counts care notes reviewed with patient, patient verbalized understanding DISCHARGE INFORMATION Discharged AMA: No Discharge Date/Time: 01/05/2017 10:48 Discharged To: Home Discharge Provider Name: Dr. Ponce Accompanied By: self Discharge Method: Ambulatory Condition: Stable FOLLOW UP INFORMATION Follow Up With: [facility] Follow Up On: As Scheduled Follow Up Phone Number: [facility] - GENERAL INSTR-CALL PROVIDER IF: Contractions: Contractions or cramps become more frequent than 8 in one hour or 4 in 20 minutes; Regular painful contractions every 5 minutes or less for one hour. Time your contractions from the beginning of one to the beginning of the next Pressure: Pressure in your vagina or lower abdomen that may feel like the baby is pushing down Period Like Cramps: Period-like cramps or low dull backache that may come and go Cramps/Diarrhea: Abdominal cramps that may be accompanied by diarrhea Gush of Fluid/Blood: Gush of fluid or blood from your vagina (it is normal to have spotting after vaginal exam or intercourse) Vaginal Discharge: Change in the type or amount of vaginal discharge Decreased Movement: Your baby is not moving as much as usual- 4 movements in 1 hour after drinking and resting on side Temperature: Temperature greater than 100.0(F) orally
--- NOTE | 2017-01-10 04:46 | L&D General Admission ---
General Admit Datetime Report Generated by N: 01/10/2017 04:45 Hemoglobin: 9.8 L (01/09/2017 10:50:QS system process) Hematocrit: 29.5 L (01/09/2017 10:50:QS system process) MCV: 77 L (01/09/2017 10:50:QS system process)
--- NOTE | 2017-01-10 04:46 | L&D Discharge Summary ---
OB Discharge Summary Datetime Report Generated by CPN: 01/10/2017 04:45 DISCHARGE DIAGNOSIS Diagnosis/Symptoms: Reassuring Surveillance - Annotate Details Diagnoses/Symptoms Other: IUP at 36.3, reactive NST Gestation: 37.0 Number of Babies in Womb: 1 Parity: 4 DIET/ACTIVITY/RESTRICTIONS Diet: Regular Activity: Normal Activity TEACHING/INSTRUCTIONS/REFERRALS Instructions Given To: patient Instructions Understood: Patient Verbalized Understanding Referrals: None Educational Materials- Other: kick counts care notes reviewed with patient, patient verbalized understanding DISCHARGE INFORMATION Discharged AMA: No Discharge Date/Time: 01/05/2017 10:48 Discharged To: Home Discharge Provider Name: Dr. Ponce Accompanied By: self Discharge Method: Ambulatory Condition: Stable FOLLOW UP INFORMATION Follow Up With: [facility] Follow Up On: As Scheduled Follow Up Phone Number: [facility] - GENERAL INSTR-CALL PROVIDER IF: Contractions: Contractions or cramps become more frequent than 8 in one hour or 4 in 20 minutes; Regular painful contractions every 5 minutes or less for one hour. Time your contractions from the beginning of one to the beginning of the next Pressure: Pressure in your vagina or lower abdomen that may feel like the baby is pushing down Period Like Cramps: Period-like cramps or low dull backache that may come and go Cramps/Diarrhea: Abdominal cramps that may be accompanied by diarrhea Gush of Fluid/Blood: Gush of fluid or blood from your vagina (it is normal to have spotting after vaginal exam or intercourse) Vaginal Discharge: Change in the type or amount of vaginal discharge Decreased Movement: Your baby is not moving as much as usual- 4 movements in 1 hour after drinking and resting on side Temperature: Temperature greater than 100.0(F) orally
== END 2017-01-05 10:48 | disposition home or self-care (01) ==
LOC: LC 10:02
PROVIDERS: ATTEND Student in an Organized Health Care Education/Training Program
PROC: 4A1HXCZ Monitoring of Products of Conception, Cardiac Rate, External Approach (ICD-10-PCS; principal; 2017-01-05)
DX: Z34.93 Encounter for supervision of normal pregnancy, unspecified, third trimester (principal); Z36 Encounter for antenatal screening of mother; Z3A.36 36 weeks gestation of pregnancy
CPT/HCPCS: 59025

== ENCOUNTER 2017-01-10 05:46 | Inpatient (IN) | payer OTHER ==
[2017-01-09 11:35] LABS: APPEARANCE,URINE CLEAR; BILIRUBIN,URINE NEGATIVE (NEGATIVE); GLUCOSE, URINE NEGATIVE (NEGATIVE); KETONES,URINE NEGATIVE (NEGATIVE); LEUKOCYTE ESTERASE,URINE NEGATIVE (NEGATIVE); NITRITE,URINE NEGATIVE (NEGATIVE); PROTEIN,URINE NEGATIVE (NEGATIVE); URINE SPECIFIC GRAVITY 1.016; UROBILINOGEN,URINE NEGATIVE mg/dL (<2.0)
[2017-01-09 11:41] LABS: ABSOLUTE EOSINOPHILS # (AUTO) 0.1 10^3/uL (0.0-0.6); ABSOLUTE LYMPHOCYTES (AUTO) 1.7 10^3/uL (0.5-4.7); ABSOLUTE MONOCYTES (AUTO) 0.7 10^3/uL (0.1-1.4); ABSOLUTE NEUT (AUTO) 10.5 10^3/uL (1.7-8.2); BASOPHILS % (AUTO) 0.3 % (0-2); EOSINOPHILS % (AUTO) 0.9 % (0-6); HEMATOCRIT 29.5 % (36.0-47.0); HEMOGLOBIN 9.8 g/dL (12.0-15.5); HGB HCT DIFFERENCE -0.1; LYMPHOCYTES % (AUTO) 13.3 % (13-45); MEAN CORPUSCULAR HEMOGLOBIN 25.6 pg (27.0-33.4); MEAN CORPUSCULAR HGB CONC 33.1 g/dL (32.0-36.0); MEAN CORPUSCULAR VOLUME 77 fl (80-97); RED BLOOD COUNT 3.81 10^6/uL (3.72-5.28); RED CELL DISTRIBUTION WIDTH 15.9 % (11.5-14.0); SEGMENTED NEUTROPHILS % (AUTO) 80.5 % (42-78); WHITE BLOOD COUNT 13.1 10^3/uL (4.0-10.5)
[2017-01-09 11:55] LABS: URINE BARBITURATES SCREEN NEGATIVE; URINE METHADONE SCREEN NEGATIVE; URINE OPIATES LOW NEGATIVE; URINE PHENCYCLIDINE SCREEN NEGATIVE
[~2017-01-10 05:46] MED LIST: CEFAZOLIN 1 GM/D5W RTU 1 GM/50 ML RTUPB IV PRN; LACTATED RINGERS 1000 ML IV PRN; LIDOCAINE 0.5% INJ-PF (5 MG/ML) 50 ML SDV SUBCUT PRN; RINGERS SOLUTION,LACTATED 1,000 ML IV ONE
[2017-01-10] MEDS ORDERED: KETOROLAC TROMETHAMINE INJ/PF 30 MG/1 ML SDV ONE (09:23)
[2017-01-10] MEDS ORDERED: OXYTOCIN 10 UNIT/ML VIAL ONE (09:23)
[2017-01-10] MEDS ORDERED: ACETAMINOPHEN 100 ML IV ONE (09:24)
[2017-01-10] MEDS ORDERED: MIDAZOLAM 2 MG/2 ML INJ ONE (09:24)
[2017-01-10] MEDS ORDERED: EPHEDRINE SULFATE INJ 50 MG/1 ML AMPULE ONE (09:24)
[2017-01-10] MEDS ORDERED: FENTANYL CITRATE INJ/PF 250 MCG/5 ML AMPULE ONE (09:24)
[2017-01-10] MEDS ORDERED: OXYTOCIN/NORMAL SALINE 20 UNIT/1,000 ML RTUINJ ONE (09:24)
[2017-01-10] MEDS ORDERED: FENTANYL CITRATE INJ/PF 100 MCG/2 ML AMPUL ONE (09:24)
[2017-01-10] MEDS ORDERED: ONDANSETRON HCL INJ/PF 4 MG/2 ML SDV ONE (09:25)
[2017-01-10] MEDS ORDERED: DIPHENHYDRAMINE HCL 50 MG/ML VIAL IV PRN (10:20)
[2017-01-10] MEDS ORDERED: ONDANSETRON HCL INJ/PF 4 MG/2 ML SDV IV PRN (10:20)
[2017-01-10] MEDS ORDERED: PROMETHAZINE HCL INJ 25 MG/1 ML VIAL IV PRN ×2 (10:20)
[2017-01-10] MEDS ORDERED: FENTANYL CITRATE INJ/PF 100 MCG/2 ML AMPUL IV PRN ×3 (10:20)
[2017-01-10] MEDS ORDERED: MEPERIDINE HCL/PF INJ 25 MG/1 ML DISP.SYRIN IV PRN (10:20)
[2017-01-10] MEDS ORDERED: MISOPROSTOL 0.2 MG TABLET ONE (11:12)
--- NOTE | 2017-01-10 12:07 | OPERATIVE REPORT E ---
Operative Report NAME: GUS UMANA : 1980 AGE: 36Y DATE OF SURGERY: 01/10/2017 ROOM: 218 PREOPERATIVE DIAGNOSES: 1. INTRAUTERINE AT 39 WEEKS. 2. PREVIOUS X4. 3. UNDESIRED FERTILITY. POSTOPERATIVE DIAGNOSES: 1. INTRAUTERINE AT 39 WEEKS. 2. PREVIOUS X4. 3. UNDESIRED FERTILITY. OPERATION: 1. Low transverse hysterotomy section. 2. [place] tubal ligation SURGEON: ROQUE LOCK M.D. ANESTHESIA: Dr. Vila with spinal. FINDINGS: Male in breech presentation, double footling. Apgars of 9 and 9. Weight 7 pounds 0 ounces. A uterine window. Multiple varicosities of the uterine arteries, as well as multiple filmy adhesions on the uterus to the omentum and the peritoneum, multiple rectus muscle adhesions to the rectus fascia. ESTIMATED BLOOD LOSS: 600 mL. COMPLICATIONS: None. TISSUE REMOVED OR ALTERED: Bilateral fallopian tubes x2. PROCEDURE: The patient was taken to the operating room and prepared and draped in the normal sterile fashion in the supine position with a left allen tilt. Transverse skin incision was made with the scalpel following the patient's previous scar. This was carried through to the underlying layer of the fascia with the same scalpel and the Bovie as needed. The fascia was excised and extended laterally with the Bovie. The fascia was then dissected from the rectus muscles sharply with the Bovie and the rectus muscles were divided in the midline. The peritoneal cavity was entered bluntly with surgeon finger fracture with good visualization of the uterus and the bladder. The bladder blade was inserted and the hysterotomy was nicked above the uterine window with the scalpel and extended laterally with surgeon finger fracture. The infant's feet were then grasped and delivered to the level of the scapula. The arms were then swept out and the 's head was then flexed and delivered atraumatically. The nose and mouth were suctioned with the suction bulb and cord was clamped and cut. The infant was handed off to the waiting pediatricians. The uterus was exteriorized, cleared of clots and debris and the hysterotomy was closed with 0 Monocryl in a running locked fashion. Secondary to the varicosities, it was decided that as long as the hysterotomy remains hemostatic, another layer would not be placed due to concerns of bleeding from the varicosities. Attention was then turned to the tubal ligation where the right fallopian tube was grasped with a Bruce and the mesosalpinx was divided. A large segment of the fallopian tube was then tied off with 2 pieces of 2-0 chromic and intermediate section was then removed with Metzenbaum scissors. The pedicles were then coagulated with Bovie for hemostasis. This was repeated on the left without difficulty. The uterus was returned to the abdomen. The peritoneal cavity was cleared of clots and debris. The pedicles were reinspected and found to be intact and hemostatic. The rectus muscle and peritoneum were reapproximated with 2-0 chromic with a mattress suture. The fascia was closed with 0 Vicryl. The subcutaneous layer was closed with plain catgut and the skin was closed with 4-0 Vicryl. The patient tolerated the procedure well. Sponge, lap, and needle counts were correct x2 and the patient was taken to recovery in stable condition. DICTATING PHYSICIAN: ROQUE LOCK M.D. [id number] PHY#: [id number] ID: [id number] JOB#: [id number] ACCT: [id number] cc:ROQUE LOCK M.D. >
[2017-01-10] MEDS ORDERED: METHYLERGONOVINE MALEATE INJ/PF 0.2 MG/1 ML AMPULE ONE (12:38)
[2017-01-10] MEDS ORDERED: DIPH/PERTUSS(ACELL)/TETANUS VAC/PF 0.5 ML SYR (>=10YO) IM PRN (14:31)
[2017-01-10] MEDS ORDERED: OXYTOCIN/NORMAL SALINE 20 UNIT/1,000 ML RTUINJ INJ PRN (14:31)
[2017-01-10] MEDS ORDERED: ACETAMINOPHEN 325 MG TABLET PO PRN (14:31)
[2017-01-10] MEDS ORDERED: MEASLES,MUMPS&RUBELLA VACC/PF 0.5 ML VIAL SUBCUT PRN (14:31)
[2017-01-10] MEDS ORDERED: OXYCODONE-ACETAMINOPHEN 5-325 MG TABLET PO PRN ×2 (14:31)
[2017-01-10] MEDS ORDERED: PROMETHAZINE HCL INJ 25 MG/1 ML VIAL IM PRN (14:31)
[2017-01-10] MEDS ORDERED: HYDROMORPHONE HCL INJ/PF 2 MG/ML AMPULE IV PRN (14:31)
[2017-01-10] MEDS ORDERED: MORPHINE SULFATE 10 MG/ML INJ IV PRN (14:34)
[2017-01-10] MEDS ORDERED: MORPHINE SULFATE 10 MG/ML INJ ONE (15:01)
[2017-01-10] MEDS ORDERED: NIFEDIPINE 10 MG CAPSULE PO ONE (16:00)
[2017-01-10] MEDS: DOCUSATE SODIUM 100 MG CAPSULE PO SCH (17:46)
[2017-01-10] MEDS: KETOROLAC TROMETHAMINE INJ/PF 30 MG/1 ML SDV IV SCH (17:46)
[2017-01-10] MEDS ORDERED: ACETAMINOPHEN INJ/PF 1000 MG/100 ML SDV IV ONE (18:00)
[2017-01-10] MEDS ORDERED: OXYCODONE HCL IR 5 MG TABLET PO PRN (19:51)
[2017-01-10] MEDS ORDERED: LABETALOL HCL 200 MG TABLET PO SCH (20:00)
[2017-01-10] MEDS: LABETALOL HCL 200 MG TABLET PO SCH (20:30)
[2017-01-11] MEDS: KETOROLAC TROMETHAMINE INJ/PF 30 MG/1 ML SDV IV SCH (01:47)
[2017-01-11] MEDS: OXYCODONE HCL IR 5 MG TABLET PO PRN ×2 (05:42→17:32)
[2017-01-11] MEDS: IBUPROFEN 800 MG TABLET PO SCH ×4 (06:30→23:55)
[2017-01-11 07:25] LABS: HGB HCT DIFFERENCE -0.2; MEAN CORPUSCULAR HEMOGLOBIN 25.9 pg (27.0-33.4); MEAN CORPUSCULAR VOLUME 79 fl (80-97); RED BLOOD COUNT 2.93 10^6/uL (3.72-5.28); RED CELL DISTRIBUTION WIDTH 16.9 % (11.5-14.0); WHITE BLOOD COUNT 14.7 10^3/uL (4.0-10.5)
[2017-01-11 07:46] LABS: HEMOGLOBIN 7.6 g/dL (12.0-15.5)
[2017-01-11] MEDS: PRENATAL VITAMIN W-O CA NO5/FE FUMARATE/FA CAPSULE PO SCH (09:50)
[2017-01-11] MEDS: LABETALOL HCL 200 MG TABLET PO SCH ×2 (09:51→20:59)
[2017-01-11] MEDS: DOCUSATE SODIUM 100 MG CAPSULE PO SCH ×2 (09:51→17:28)
--- NOTE | 2017-01-11 10:42 | PDOC PROGRESS REPORT ---
Subjective-OB Subjective: Post Delivery Day: 1 36 year old. Denies any needs at this time, states lochia is stable, pain well controlled, voiding without difficulty, tolerating diet. Physical Exam (OB) Vital Signs: Temp Pulse Resp BP Pulse Ox 98.0 F 88 18 111/50 L 100 01/11/17 08:02 01/11/17 08:02 01/11/17 08:02 01/11/17 08:02 01/11/17 08:02 Intake & Output 01/10/17 01/11/17 01/12/17 06:59 06:59 06:59 Intake Total 5100 Output Total 2975 Balance 2125 Weight 114.31 kg - Dressing Removed: No Incision: Dressing - Lochia Lochia Amount: Scant < 10 ml Lochia Color: Rubra/Red - Abdomen Description: Tender, Soft Hernia Present: No Fundal Description: Firm, Midline Fundal Height: u/u - u/2 Objective-Diagnostic Laboratory: 01/11/17 06:26 01/11/17 01/11/17 06:26 06:26 WBC 14.7 H RBC 2.93 L Hgb 7.6 L D Hct 23.0 L MCV 79 L MCH 25.9 L MCHC 33.0 RDW 16.9 H Plt Count 228 Blood Type O NEGATIVE Assessment and Plan(PN) - Assessment and Plan (1) Tubal ligation status Is this a current diagnosis for this admission?: YesPlan: routine post op care (2) Delivery by elective caesarean section Is this a current diagnosis for this admission?: YesPlan: routine post op care (3) Depression Qualifiers: Depression Type: unspecified Qualified Code(s): F32.9 - Major depressive disorder, single episode, unspecified Is this a current diagnosis for this admission?: YesPlan: monitor for s/sx ppd (4) Acute blood loss anemia Is this a current diagnosis for this admission?: YesPlan: ferrous sulfate increase dietary iron - Time Spent with Patient Time with patient: Less than 15 minutes Critical Time spent with patient: Less than 15 minutes Medications reviewed and adjusted accordingly: Yes - Disposition Anticipated Discharge: Home Within: within 24 hours
[2017-01-11] MEDS: SIMETHICONE 80 MG TAB.CHEW PO PRN (11:47)
[2017-01-11] MEDS ORDERED: NIFEDIPINE 10 MG CAPSULE PO SCH (14:00)
[2017-01-12] MEDS: SIMETHICONE 80 MG TAB.CHEW PO PRN
[2017-01-12] MEDS: IBUPROFEN 800 MG TABLET PO SCH (05:14)
[2017-01-12] MEDS: LABETALOL HCL 200 MG TABLET PO SCH (08:13)
--- NOTE | 2017-01-12 10:19 | PDOC DISCHARGE SUMMARY ---
Final Diagnosis Discharge Date: 01/12/17 - Final Diagnosis (1) Tubal ligation status Is this a current diagnosis for this admission?: Yes (2) Delivery by elective caesarean section Is this a current diagnosis for this admission?: Yes (3) Depression Is this a current diagnosis for this admission?: Yes (4) Acute blood loss anemia Is this a current diagnosis for this admission?: Yes Discharge Data - Discharge Medication Home Medications: Vit#96/Ferrous Fum/FA [ Tablet] 1 tab PO DAILY 09/10/14 Diphenhydramine HCl [Benadryl] 25 mg PO QHS PRN 01/09/17 Iron 18 mg PO TID 01/09/17 Docusate Sodium [Colace 100 mg Capsule] 100 mg PO BID #60 capsule 01/12/17 Ibuprofen [Motrin 800 mg Tablet] 800 mg PO Q6 #60 tablet 01/12/17 Labetalol HCl [Normodyne 200 mg Tablet] 200 mg PO Q12@0800,2000 #60 tablet 01/12 Nifedipine [Procardia 10 mg Capsule] 10 mg PO DAILY@1400 #30 capsule 01/12/17 Oxycodone HCl [Oxy-Ir 5 mg Tablet] 10 mg PO Q4HP PRN #30 tablet 01/12/17 Gestational Age: 39 Reason(s) for Admission: Ceasarean Section-Repeat, Tubal Ligation, PIH, Gestional Diabetes, Advanced Maternal Age, Group B Strep Positive, Rh incompatibility Procedures: NST Intrapartum Procedure(s): : Low Cervical, Transverse, Tubal Ligation - Data Baby 1 Male at 1 minute: 9 at 5 minutes: 9 Weight: 3.175 kg Home with Mother: Yes Complications: No - Diagnosis Test Laboratory: Temp Pulse Resp BP Pulse Ox 98.2 F 94 18 144/86 H 99 01/12/17 08:10 01/12/17 08:10 01/12/17 08:10 01/12/17 08:10 01/12/17 08:10 01/09/17 01/09/17 01/11/17 10:50 11:00 06:26 RBC 3.81 2.93 L Hgb 9.8 L 7.6 L D Hct 29.5 L 23.0 L Urine Opiates Screen NEGATIVE - Discharge information/Instructions Discharge Activity: Activity As Tolerated, No Driving, No Lifting Over 10 Pounds , No Lifting/Push/Pulling, Pelvic Rest, No tub bath Discharge Diet: Regular Disposition: HOME, SELF-CARE Follow up with: [facility] in: 1, Weeks
[2017-01-12] MEDS: PRENATAL VITAMIN W-O CA NO5/FE FUMARATE/FA CAPSULE PO SCH (10:42)
[2017-01-12] MEDS: DOCUSATE SODIUM 100 MG CAPSULE PO SCH (10:42)
[2017-01-12 12:00] VITALS: BP 136/80
== END 2017-01-12 12:57 | disposition home or self-care (01) | DRG 765 ==
LOC: 2S 05:46
PROVIDERS: ADMIT Obstetrics & Gynecology; ATTEND Obstetrics & Gynecology
PROC: 0UB70ZZ Excision of Bilateral Fallopian Tubes, Open Approach (ICD-10-PCS; 2017-01-10)
PROC: 4A1HXCZ Monitoring of Products of Conception, Cardiac Rate, External Approach (ICD-10-PCS; 2017-01-10)
PROC: 10D00Z1 Extraction of Products of Conception, Low, Open Approach (ICD-10-PCS; principal; 2017-01-10 09:00)
PROC: 3E0234Z Introduction of Serum, Toxoid and Vaccine into Muscle, Percutaneous Approach (ICD-10-PCS; 2017-01-11)
DX: O34.211 Maternal care for low transverse scar from previous cesarean delivery (principal); D62 Acute posthemorrhagic anemia; O26.893 Other specified pregnancy related conditions, third trimester; O99.344 Other mental disorders complicating childbirth; F32.9 Major depressive disorder, single episode, unspecified; O99.02 Anemia complicating childbirth; O99.824 Streptococcus B carrier state complicating childbirth; Z30.2 Encounter for sterilization; Z67.41 Type O blood, Rh negative; Z88.6 Allergy status to analgesic agent; Z83.3 Family history of diabetes mellitus; Z80.9 Family history of malignant neoplasm, unspecified; Z82.49 Family history of ischemic heart disease and other diseases of the circulatory system; Z3A.39 39 weeks gestation of pregnancy; Z37.0 Single live birth
CPT/HCPCS: 1961; 36415; 59025; 80307; 81001; 85025; 85027; 85461; 86850; 86900; 86901; 88302; 94799; J0131; J0690; J1885; J2210; J2250; J2270; J2405; J2590; J2790; J3010; J3490; J7120